=== PATIENT | female | born 1990 | race Two or more races ===

== ENCOUNTER 2021-05-26 20:20 | Emergency (ER) | payer SELFPAY ==
[~2021-05-26] VITALS: Ht 157.5 cm; Wt 80.6 kg
[2021-05-26 21:49] LABS: U PREG PATIENT POSITIVE (NEG)
[2021-05-26 23:05] VITALS: BP 134/69
[2021-05-26 23:09] LABS: BILIRUBIN,URINE NEGATIVE (NEG); CLARITY,URINE TURBID; COLOR,URINE YELLOW; NITRITE,URINE NEGATIVE (NEG); PROTEIN,URINE NEGATIVE (NEG-TRACE)
[2021-05-26 23:19] LABS: AMORPHOUS SEDIMENT,UR PRESENT /HPF; BACTERIA,URINE FEW /HPF (0-FEW); RBC,URINE 0 /HPF (0-2); WBC,URINE OCC /HPF (0-4)
--- NOTE | 2021-05-26 23:19 | PHYS DOC ---
Past Medical History Additional Past Medical Histor: Past Surgical History: No Surgical History General Adult EDM: Chief Complaint: ABDOMINAL PAIN IN HPI: HPI: 31 yo (LMP 03/2021) presents to the ed with c/o lower abdominal pain and low back pain that started just prior to arrival while patient was lifting a heavy object at work. Patient denies any prior injury to her abdomen. No associated vaginal bleeding, leakage or abnormal discharge. She took a home test this past month that was positive. Reports she is concerned for her baby. Does report morning sickness with this -vomited after eating earlier today. 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 Review of Systems: Review of Systems: Constitutional: Denies fever or chills. [] Eyes: Denies change in visual acuity. [] HENT: Denies nasal congestion or sore throat. [] Respiratory: Denies cough or shortness of breath. [] Cardiovascular: Denies chest pain or edema. [] GI: Denies bloody stools or diarrhea. [] : Denies dysuria or hematuria Musculoskeletal: Denies flank pain or joint pain. [] Integument: Denies rash or diaphoresis Neurologic: Denies headache, focal weakness or sensory changes. [] Endocrine: Denies polyuria or polydipsia. [] Lymphatic: Denies swollen glands. [] Psychiatric: Denies depression or anxiety. [] Heart Score: C/O Chest Pain: No Risk Factors: Risk Factors: DM, Current or recent (<one month) smoker, HTN, HLP, family history of CAD, obesity. Risk Scores: Score 0 - 3: 2.5% MACE over next 6 weeks - Discharge Home Score 4 - 6: 20.3% MACE over next 6 weeks - Admit for Clinical Observation Score 7 - 10: 72.7% MACE over next 6 weeks - Early Invasive Strategies Allergies: Allergies: Allergies Coded Allergies Type Severity Reaction Last Updated Verified codeine Allergy Unknown Rash 05/26/21 Yes Physical Exam: PE: Constitutional: Well developed, well nourished, no acute distress, non-toxic appearance. HENT: Normocephalic, atraumatic, Eyes: EOMI, conjunctiva normal, no discharge. Neck: Normal range of motion, supple, Cardiovascular: S1/2 present, regular rhythm Lungs & Thorax: Speaking in full sentences, bilateral equal chest rise, no tachypnea or increased work of breathing Abdomen: soft, no tenderness, tenderness in suprapubic region Skin: Warm, dry, no erythema, no rash. [] Back: Reports L5 midline back pain with no significant crepitus or pain with palpation, no midline step-offs, no CVA tenderness. [] Extremities: No tenderness, no cyanosis, no lower extremity edema Neurologic: Alert and oriented X 3, normal motor function, normal sensory function, no focal deficits noted. [] Psychologic: Affect normal, judgement normal, mood normal. [] Bedside pocus performed on arrival w/IUP, stational sac, yolk sac and pole visualized with reactively visualized Current Patient Data: Labs: Laboratory Tests Test 05/26/21 21:30 Urine Test Positive (NEG) Vital Signs: Vital Signs Date Time Temp Pulse Resp B/P (MAP) Pulse Ox O2 Delivery O2 Flow Rate FiO2 05/26/21 20:25 98.7 97 18 119/55 (76) 100 Room Air 98.7 EKG: EKG: [] Radiology/Procedures: Radiology/Procedures: IMAGING REPORT Signed PATIENT: ELVIS MAYER MACCOUNT: [id number] : 1990 LOCATION: ER AGE: 31 SEX: F EXAM STATUS: REG ER ORD. PHYSICIAN: KYLE RENTERIA DO REASON: abd pain in PROCEDURE: OB TRANSVAG US OB TRANSVAGINAL: 05/26/2021 10:56 PM INDICATION: 31 years old Female. Abdominal pain in . COMPARISON: None. TECHNIQUE: Transabdominal and transvaginal sonographic evaluation of the pelvis was performed. Grayscale, color Doppler and spectral waveform analysis were utilized. FINDINGS: UTERUS: There is a single circumscribed, normal gestational sac with yolk sac and pole. heart tones measure 141 bpm. [place]-rump length measures 0.9 cm compatible gestational age of 7 weeks 0 days. Size: 9.3 x 6.4 x 5.2 cm. Masses: None. Endometrium: No suspicious vascularity is identified. RIGHT OVARY: 2.4 x 2.1 x 1.8 cm. Ovary is normal in appearance. LEFT OVARY: 1.8 x 1.6 x 1.5 cm. Ovary is normal in appearance. Arterial and venous waveform are identified within the ovaries bilaterally at the time of imaging. FREE FLUID: None. URINARY BLADDER: Unremarkable. IMPRESSION: Single viable intrauterine gestation visualized with heart tones measuring 141 bpm and crown-rump length compatible gestational age of 7 weeks 0 days. There is persistent clinical concern, short-term follow-up pelvic ultrasound and beta-hCG could be of benefit. Perfusion is noted to the ovaries bilaterally at the time of imaging. Electronically signed by: China Benavidez MD (05/26/2021 11:45 PM) [facility] DICTATED and SIGNED BY: CHINA BENAVIDEZ MD DATE: 05/26/21 [id number] 0 Course & Med Decision Making: Course & Med Decision Making Pertinent Labs and Imaging studies reviewed. (See chart for details) Concern for mild abdominal pelvic pain will lifting at work. On reevaluation patient states she feels well and her pain has resolved. Has no active nausea vomiting emergency department. Basic labs are unremarkable with nonspecific leukocytosis. Ultrasound shows normal intrauterine . Patient with no vaginal bleeding. Is O+ and not a candidate for RhoGam. Urinalysis is a contaminated sample with no nitrates or leukocyte esterase. Patient is calm, well-appearing with symptom resolution and reevaluation. Will discharge home with strict ED return precautions were given for blunt abdominal injury, severe abdominal or back pain or vaginal bleeding. Encouraged urgent outpatient follow- up with PMD for routine care and SPECIALTY PERSON for definitive management for shortness of . Life-threatening processes were considered but are low suspicion at this time, given history, physical exam and ED workup. Pt was educated on all prescription medications and adverse effects. All patient's questions were answered and pt was stable at time of discharge. Life/limb-threatening differential includes but is not limited to, ectopic , septic , sepsis/infection (endometritis, sti/pid, cystitis, pyelonephritis, Dejuan's gangrene or necrotizing fasciitis, abscess), ovarian torsion, ruptured hemorrhagic ovarian cyst, endometriosis, ureterolithiasis, thrombophlebitis, hemorrhage/DIC, organ prolapse, abdominal aortic aneurysm, mesenteric ischemia, neoplasm, bowel obstruction or surgical abdomen. I have spoken with the patient and/or caregivers. I explained the patient's condition, diagnoses and treatment plan based on the information available to me at this time. I have answered the patient and/or caregiver's questions and addressed any concerns. The patient and/or caregivers have a good understanding of patient's diagnosis, condition and treatment plan as can be expected at this point. Vital signs have been stable. Patient's condition is stable and appropriate for discharge from the emergency department. Patient will pursue further outpatient evaluation with primary care physician or other designated or consulting physician as outlined in the discharge instructions. The patient and/or caregivers are agreeable to this plan of care and follow-up instructions have been explained in detail. The patient and/or caregivers have received these instructions in written form and have expressed an understanding of the discharge instructions. The patient and/or caregivers are aware that any significant change of condition or worsening of symptoms should prompt immediate return to this or the closest emergency department or call to 911. Jason Disclaimer: Dragon Disclaimer: This electronic medical record was generated, in whole or in part, using a voice recognition dictation system. Departure Departure Impression: Primary Impression: Abdominal pain during in first trimester Disposition: 01 HOME / SELF CARE / HOMELESS Condition: STABLE Referrals: NO PCP (PCP) Seguimiento con starkey mdico de atencin primaria para atencin de rutina O SEGUIMIENTO CON MEDICINA FAMILIAR: [id number] [facility], [facility] [address] [place] [address] Telfono: Patient Instructions: Abdominal Pain During Additional Instructions: SEGUIMIENTO CON SPECIALTY PERSON: PARA EL MANEJO DEFINITIVO del embarazo en el primer count includes the [facility] [address] [facility], [facility] [address] [place] [address] Telfono: INSTRUCCIONES GENERALES DE REGGIE DEL DEPARTAMENTO DE EMERGENCIA Jony por venir al Departamento de Emergencias (ED) de [facility] cory y confiando en nosotros con starkey cuidado. Confiamos en que tuviste jackie experiencia positiva en nuestra Emergencia Departamento. Si desea hablar con la gerencia del departamento, puede llamar al Director al [phone]. KHRIS INSTRUCCIONES DE SEGUIMIENTO SON LAS SIGUIENTES: 1. Tiene un mdico privado? Si no tiene un mdico privado, por favor pida vivien lista de recursos de mdicos o clnicas que pueden ayudarlo con la atencin de seguimiento. 2. El Mdico de Urgencias arnold interpretado khris radiografas. El especialista en jeffrey X tambin revisarlos. Si hay un cambio en los hallazgos, se le notificar en 48 horas cuando al todo posible. 3. Se arnold realizado jackie prueba de laboratorio o cultivo, se revisarn khris resultados y se le notificado si necesita un cambio en el tratamiento. INSTRUCCIONES E INFORMACIN ADICIONALES: 1. Starkey atencin hoy arnold sido supervisada por un mdico especialmente capacitado en emergencias cuidado. Muchos problemas requieren ms de jackie evaluacin para un diagnstico completo y tratamiento. Le recomendamos que programe starkey elizabeth de seguimiento segn lo recomendado para garantizar el tratamiento completo de starkey enfermedad o lesin. Si no puede obtener un seguimiento atencin y contina teniendo un problema, o si starkey condicin empeora, le rec omendamos que volver al servicio de urgencias. 2. No podemos determinar starkey condicin de forma vargas por telfono ni podemos rachel buenos consejos mdicos por telfono. Por estas razones de seguridad, si llama para recibir atencin mdica consejo, le pediremos que venga al servicio de urgencias para jackie evaluacin adicional. 3. Si tiene alguna pregunta con respecto a estas instrucciones de reggie, llame al ED al [phone]. INFORMACIN DE SEGURIDAD: En inters de la seguridad, el bienestar y la prevencin de lesiones; te animamos a que lleves tu cinturn de seguridad, si fuma; fumando bastante, y alentamos a la braeden a usar un pierre protector para andar en bicicleta y otros eventos deportivos que presentan un mayor riesgo de lesiones en la oanh. SI KHRIS SNTOMAS EMPEORAN O SE DESARROLLAN NUEVOS SNTOMAS, O SI TIENE PREOCUPACIONES SOBRE STARKEY CONDICIN; O SI STARKEY CONDICIN EMPEORA MIENTRAS ESPERA STARKEY ELIZABETH DE SEGUIMIENTO; CUALQUIERA COMUNQUESE CON STARKEY MDICO DE ATENCIN PRIMARIA, EL MDICO CUYO NOMBRE Y NMERO LE DIERON, O REGRESE AL ED INMEDIATAMENTE. Scripts Vit No.78/Iron/Fa (PRENATABS FA TABLET) 1 Each Tablet 1 TAB PO DAILY for 30 Days, #30 TAB 0 Refills Prov: KYLE RENTERIA DO 05/27/21 KYLE RENTERIA DO May 26, 2021 23:19
[2021-05-26 23:23] LABS: BASO % 0 % (0-3); EOS # 0.1 x10^3/uL (0.0-0.7); EOS % 1 % (0-3); HEMATOCRIT 38.5 % (36.0-47.0); LYMPH # 4.2 x10^3/uL (1.0-4.8); LYMPH % 34 % (24-48); MEAN CORPUSCULAR HEMOGLOBIN 31 pg (25-35); MEAN CORPUSCULAR HGB CONC 34 g/dL (31-37); MEAN CORPUSCULAR VOLUME 91 fL (79-100); MONO # 1.1 x10^3/uL (0.0-1.1); MONO % 9 % (0-9); NEUT # 7.1 x10^3/uL (1.8-7.7); NEUT % 57 % (31-73); PLATELET COUNT 260 x10^3/uL (140-400); RED BLOOD COUNT 4.22 x10^6/uL (3.50-5.40); RED CELL DISTRIBUTION WIDTH 13.2 % (11.5-14.5); WHITE BLOOD COUNT 12.4 x10^3/uL (4.0-11.0)
[2021-05-26 23:34] LABS: CALCIUM 8.5 mg/dL (8.5-10.1); CREATININE 0.6 mg/dL (0.6-1.0); GFR 117.4; POTASSIUM 3.5 mmol/L (3.5-5.1)
[2021-05-26 23:39] LABS: ALBUMIN 3.8 g/dL (3.4-5.0); ALBUMIN/GLOBULIN RATIO 0.9 (1.0-1.7); TOTAL PROTEIN 7.9 g/dL (6.4-8.2)
--- NOTE | 2021-05-26 23:48 | RAD ---
US OB TRANSVAGINAL: 05/26/2021 10:56 PM INDICATION: 31 years old Female. Abdominal pain in . COMPARISON: None. TECHNIQUE: Transabdominal and transvaginal sonographic evaluation of the pelvis was performed. Nat urmila, color Doppler and spectral waveform analysis were utilized. FINDINGS: UTERUS: There is a single circumscribed, normal gestational sac with yolk sac and pole. h eart tones measure 141 bpm. [place]-rump length measures 0.9 cm compatible gestational age of 7 weeks 0 days. Size: 9.3 x 6.4 x 5.2 cm. Masses: None. Endometrium: No suspicious vascularity is identified. RIGHT OVARY: 2.4 x 2.1 x 1.8 cm. Ovary is normal in appearance. LEFT OVARY: 1.8 x 1.6 x 1.5 cm. Ovary is normal in appearance. Arterial and venous waveform are identified within the ovaries bilaterally at the time of imaging. FREE FLUID: None. URINARY BLADDER: Unremarkable. IMPRESSION: Single viable intrauterine gestation visualized with heart tones measuring 141 bpm and crown-ru mp length compatible gestational age of 7 weeks 0 days. There is persistent clinical concern, short-t erm follow-up pelvic ultrasound and beta-hCG could be of benefit. Perfusion is noted to the ovaries bilaterally at the time of imaging. Electronically signed by: Yoly Giraldo MD (05/26/2021 11:45 PM) CHERELLE
[2021-05-27] MEDS ORDERED: PREN1TAB99 PO (01:40)
== END 2021-05-27 01:50 | disposition home or self-care (01) ==
LOC: ER 20:20
DX: O26.891 Other specified pregnancy related conditions, first trimester (principal); R10.30 Lower abdominal pain, unspecified; M54.59 Other low back pain; Z3A.01 Less than 8 weeks gestation of pregnancy; Z88.5 Allergy status to narcotic agent
CPT/HCPCS: 36415; 76817; 80053; 81001; 81025; 84702; 85025; 86900; 86901; 99284

== ENCOUNTER 2021-07-29 12:43 | Emergency (ER) | payer SELFPAY ==
[~2021-07-29] VITALS: Ht 160 cm; Wt 80.0 kg
[~2021-07-29 12:43] MED LIST: PREN1TAB99 PO
[2021-07-29] MEDS ORDERED: IV RINGERS,LACTATED 1000ML 1,000 ML IV SCH (13:15)
--- NOTE | 2021-07-29 13:34 | RAD ---
INDICATION: Reason: CP, SOB, lightheaded / Spl. Instructions: / History: COMPARISON: None. FINDINGS: Single view of chest obtained. Cardiac silhouette is unremarkable. Mild interstitial prominence bilaterally most prominent at the lung bases. No gross osseous destructive lesion IMPRESSION: * Mild interstitial opacities most prominent at lung bases. Possible causes would include mild pulmo nary vascular congestion or mild interstitial infiltrate. Electronically signed by: Jairo Patel MD (07/29/2021 1:31 PM) [id number]
[2021-07-29 14:34] LABS: BACTERIA,URINE FEW /HPF (0-FEW); RBC,URINE 0 /HPF (0-2); WBC,URINE OCC /HPF (0-4)
[2021-07-29 14:42] LABS: BASO % 0 % (0-3); EOS # 0.1 x10^3/uL (0.0-0.7); EOS % 1 % (0-3); HEMATOCRIT 34.1 % (36.0-47.0); HEMOGLOBIN 12.1 g/dL (12.0-15.5); LYMPH # 2.5 x10^3/uL (1.0-4.8); LYMPH % 21 % (24-48); MEAN CORPUSCULAR HEMOGLOBIN 32 pg (25-35); MEAN CORPUSCULAR HGB CONC 36 g/dL (31-37); MEAN CORPUSCULAR VOLUME 90 fL (79-100); MONO # 0.9 x10^3/uL (0.0-1.1); MONO % 8 % (0-9); NEUT # 8.3 x10^3/uL (1.8-7.7); NEUT % 70 % (31-73); PLATELET COUNT 227 x10^3/uL (140-400); RED BLOOD COUNT 3.78 x10^6/uL (3.50-5.40); RED CELL DISTRIBUTION WIDTH 13.1 % (11.5-14.5); WHITE BLOOD COUNT 11.9 x10^3/uL (4.0-11.0)
[2021-07-29 15:08] LABS: CALCIUM 8.6 mg/dL (8.5-10.1); CREATININE 0.6 mg/dL (0.6-1.0); GFR 117.4; POTASSIUM 3.2 mmol/L (3.5-5.1)
--- NOTE | 2021-07-29 15:11 | PHYS DOC ---
Past Medical History Past Medical History: No Pertinent History (TERRELL MASON) Past Surgical History: No Surgical History (TERRELL MASON) Smoking Status: Current Every Day Smoker Alcohol Use: None Drug Use: None (TERRELL MASON) General Adult EDM: Chief Complaint: CHEST PAIN HPI: HPI: Patient is a 31 year old A0 female who presents with chest pain, lightheadedness and shortness of breath that began about 3 hours prior to arrival. Patient reports that she was at work when her symptoms began all at once and suddenly. She states that she attempted to sit down, breathe slowly and close her eyes, but her chest pain did not resolve. Patient reports she had similar symptoms about 1 year ago when her mother . Patient denies weakness, diaphoresis, nausea vomiting, palpitations, cough. Patient's last known menstrual period began on 03/14/2022, which places her at approximately 19 weeks 4 days gestational age. She has no abdominal pain, abdominal cramping, vaginal cramping, vaginal bleeding, increased vaginal discharge or any other complaints related to her . (TERRELL MASON) Review of Systems: Review of Systems: Constitutional: Denies fever, chills or generalized weakness Eyes: Denies change in visual acuity, visual field deficits or discharge HENT: Denies ear pain, nasal congestion or sore throat Respiratory: See HPI Cardiovascular: See HPI GI: Denies abdominal pain, nausea, vomiting, bloody stools or diarrhea : Denies dysuria or hematuria Musculoskeletal: Denies back pain or joint pain Integument: Denies rash or other skin lesion Neurologic: See HPI (TERRELL MASON) Heart Score: C/O Chest Pain: Yes HEART Score for Chest Pain: HEART Score for Chest Pain Response (Comments) Value History Slighlty/Non-Suspicious 0 ECG Normal 0 Age < 45 0 Risk Factors No Risk Factors 0 Troponin < Normal Limit 0 Total 0 Risk Factors: Risk Factors: none Risk Scores: Score 0 - 3: 2.5% MACE over next 6 weeks - Discharge Home Score 4 - 6: 20.3% MACE over next 6 weeks - Admit for Clinical Observation Score 7 - 10: 72.7% MACE over next 6 weeks - Early Invasive Strategies (TERRELL MASON) Current Medications: Current Medications Medications (Trade) Dose Ordered Sig/Rosemarie Start Time Stop Time Status Last Admin Dose Admin Ringer's Solution 1,000 ml @ 1,000 mls/hr Q1H 07/29/21 13:15 07/29/21 14:14 DC 07/29/21 13:15 1,000 MLS/HR (TERRELL MASON) Allergies: Allergies: Allergies Coded Allergies Type Severity Reaction Last Updated Verified codeine Allergy Intermediate Rash 07/29/21 Yes (TERRELL MASON) Physical Exam: PE: Constitutional: Well developed, well nourished, non-toxic appearance, patient appears anxious. HENT: Normocephalic, atraumatic, bilateral external ears normal, oropharynx moist, no oral exudates, nose normal. Eyes: PERRL, EOMI, conjunctiva normal, no discharge. Neck: Normal range of motion, no stridor. Cardiovascular: Heart regular rate and rhythm. No apparent murmurs, rubs or gallops. Lungs & Thorax: Equal thoracic expansion, no increased work of breathing, lung dunlap clear to auscultation. Skin: Warm, dry, no erythema, no rash. Neurologic: Alert and oriented x4, normal motor function, normal sensory function, no focal deficits noted. (TERRELL MASON) Current Patient Data: Labs: Laboratory Tests Test 07/29/21 13:14 07/29/21 14:30 07/29/21 17:40 Urine Collection Type Unknown Urine Color (Auto) Colorless Urine Turbidity Clear Urine pH (Auto) 7.0 (<5.0-8.0) Urine Specific [place] 1.003 (1.000-1.030) Urine Protein (Auto) Negative mg/dL (Negative) Urine Glucose (Auto)(UA) Negative mg/dL (Negative) Urine Ketones (Auto) Negative mg/dL (Negative) Urine Blood (Auto) Negative (Negative) Urine Nitrite Negative (Negative) Urine Bilirubin (Auto) Negative (Negative) Urine Urobilinogen (Auto) Normal mg/dL (Normal) Urine Leukocyte Esterase (Auto) Negative (Negative) Urine RBC 0 /HPF (0-2) Urine WBC Occ /HPF (0-4) Urine Squamous Epithelial Cells Few /LPF Urine Bacteria Few /HPF (0-FEW) White Blood Count 11.9 x10^3/uL (4.0-11.0) Red Blood Count 3.78 x10^6/uL (3.50-5.40) Hemoglobin 12.1 g/dL (12.0-15.5) Hematocrit 34.1 % (36.0-47.0) Mean Corpuscular Volume 90 fL (79-100) Mean Corpuscular Hemoglobin 32 pg (25-35) Mean Corpuscular Hemoglobin Concent 36 g/dL (31-37) Red Cell Distribution Width 13.1 % (11.5-14.5) Platelet Count 227 x10^3/uL (140-400) Neutrophils (%) (Auto) 70 % (31-73) Lymphocytes (%) (Auto) 21 % (24-48) Monocytes (%) (Auto) 8 % (0-9) Eosinophils (%) (Auto) 1 % (0-3) Basophils (%) (Auto) 0 % (0-3) Neutrophils # (Auto) 8.3 x10^3/uL (1.8-7.7) Lymphocytes # (Auto) 2.5 x10^3/uL (1.0-4.8) Monocytes # (Auto) 0.9 x10^3/uL (0.0-1.1) Eosinophils # (Auto) 0.1 x10^3/uL (0.0-0.7) Basophils # (Auto) 0.0 x10^3/uL (0.0-0.2) Maternal Serum HCG Beta Subunit 12972 mIU/mL (0-5) Sodium Level 137 mmol/L (136-145) Potassium Level 3.2 mmol/L (3.5-5.1) Chloride Level 103 mmol/L (98-107) Carbon Dioxide Level 25 mmol/L (21-32) Anion Gap 9 (6-14) Blood Urea Nitrogen 5 mg/dL (7-20) Creatinine 0.6 mg/dL (0.6-1.0) Estimated GFR (Cockcroft-Gault) 117.4 BUN/Creatinine Ratio 8 (6-20) Glucose Level 133 mg/dL (70-99) Calcium Level 8.6 mg/dL (8.5-10.1) Magnesium Level 2.0 mg/dL (1.8-2.4) Total Bilirubin 0.4 mg/dL (0.2-1.0) Aspartate Amino Transf (AST/SGOT) 17 U/L (15-37) Alanine Aminotransferase (ALT/SGPT) 24 U/L (14-59) Alkaline Phosphatase 64 U/L (46-116) Troponin I High Sensitivity 5 ng/L (4-50) 5 ng/L (4-50) Total Protein 7.1 g/dL (6.4-8.2) Albumin 3.0 g/dL (3.4-5.0) Albumin/Globulin Ratio 0.7 (1.0-1.7) Laboratory Tests 07/29/21 14:30 Vital Signs: Vital Signs Date Time Temp Pulse Resp B/P (MAP) Pulse Ox O2 Delivery O2 Flow Rate FiO2 07/29/21 18:53 70 16 135/76 (95) 100 Room Air 07/29/21 16:01 70 16 127/55 (79) 97 Room Air 07/29/21 12:50 98.6 97 16 119/73 (88) 100 Room Air 98.6 heart tones measured in the 150s. (TERRELL MASON) EKG: EKG: EKG Interpreted by Dr. Haney at 1320: Regular rate and rhythm 91 bpm with no ectopic beats. QT 362 ms/QTc 447 ms. No STEMI. EKG Interpreted by Dr. Haney at 1428: Regular rate and rhythm 89 bpm with no ectopic beats. QT 376 ms/QTc 459 ms. No STEMI. (TERRELL MASON) Radiology/Procedures: Radiology/Procedures: PROCEDURE: PORTABLE CHEST 1V INDICATION: Reason: CP, SOB, lightheaded / Spl. Instructions: / History: COMPARISON: None. FINDINGS: Single view of chest obtained. Cardiac silhouette is unremarkable. Mild interstitial prominence bilaterally most prominent at the lung bases. No gross osseous destructive lesion IMPRESSION: * Mild interstitial opacities most prominent at lung bases. Possible causes would include mild pulmonary vascular congestion or mild interstitial infiltrate. Electronically signed by: Jairo Patel MD (07/29/2021 1:31 PM) [id number] (TERRELL MASON) Course & Med Decision Making: Course & Med Decision Making Pertinent Labs and Imaging studies reviewed. (See chart for details) Patient is a 31-year-old female at approximately 19 weeks 4 days gestat ion who presents with chest pain and associated shortness of breath and lightheadedness. Work-up today will include serial EKGs, serial troponin, labs. D-dimer testing in discussed with patient, and she declines this lab draw today. Patient states that her symptoms today are all very similar to the acute grief reaction she experienced when her mother . This was almost 1 year ago, and so she is approaching the date that her mother . Work-up today is reassuring. Patient is instructed to follow-up with OB. Strict return precautions were provided. Patient understands and is agreeable to discharge plan. Patient is slovak speaking. Interview and exam were conducted in slovak with good understanding and fluid communication. (TERRELL MASON) Dragon Disclaimer: Dragon Disclaimer: This electronic medical record was generated, in whole or in part, using a voice recognition dictation system. (TERRELL MASON) Departure Departure Impression: Primary Impression: Atypical chest pain Additional Impression: Reaction, situational, acute, to stress Disposition: 01 HOME / SELF CARE / HOMELESS Condition: STABLE Referrals: NO PCP (PCP) Patient Instructions: Grief Reaction, Potassium Content of Foods Additional Instructions: INSTRUCCIONES GENERALES DE REGGIE DEL DEPARTAMENTO DE EMERGENCIA Jony por venir cory al Departamento de Emergencias (ED) de y confiarnos starkey atencin. Confiamos en que haya tenido jackie experiencia positiva en nuestro Departamento de Emergencias. Si desea hablar con la gerencia del departamento, puede llamar al director al . KHRIS INSTRUCCIONES DE SEGUIMIENTO SON LAS SIGUIENTES: 1. Tammi un seguimiento con starkey mdico de atencin primaria. Si no tiene un mdico de cabecera, solicite jackie lista de recursos de mdicos o clnicas que puedan ayudarlo con la atencin de seguimiento. 2. El proveedor de emergencia arnold interpretado khris estudios de imgenes, si se ordenaron. El especialista en imgenes de radiologa tambin los brendon. Si hay un cambio en los hallazgos, se le notificar en 48 horas cuando sea posible. 3. Si se arnold realizado jackie prueba de laboratorio o un cultivo, se revisarn khris resultados y se le notificar si necesita un cambio en el tratamiento. 4. Siga las instrucciones verbalizadas y consulte las copias impresas si es necesario. INSTRUCCIONES E INFORMACIN ADICIONALES: 1. Starkey atencin hoy arnold sido supervisada por un mdico especialmente capacitado en atencin de emergencia. Muchos problemas requieren ms de jackie evaluacin para un diagnstico y tratamiento completos. Le recomendamos que programe starkey elizabeth de seguimiento segn lo recomendado para garantizar el tratamiento completo de starkey enfermedad o lesin. Si no puede obtener atencin de seguimiento y contina teniendo un problema, o si starkey condicin empeora, le recomendamos que regrese al servicio de urgencias. 2. No podemos determinar de manera vargas starkey condicin por telfono ni podemos rachel consejos mdicos slidos por telfono. Por estas razones de seguridad, si llama para pedir consejo mdico, le pediremos que vaya al servicio de urgencias para jackie evaluacin adicional. 3. Si tiene alguna pregunta sobre estas instrucciones de reggie, llame al ED al . INFORMACIN DE SEGURIDAD: En inters de la seguridad, el bienestar y la prevencin de lesiones; le recomendamos que use starkey cinturn de seguridad, si fuma; bastante fumador, y a lentamos a la braeden a usar un pierre protector para andar en bicicleta y otros eventos deportivos que presenten un mayor riesgo de lesiones en la oanh. SI KHRIS SNTOMAS EMPEORAN O SE DESARROLLAN NUEVOS SNTOMAS, O SI TIENE PREOCUPACIONES SOBRE STARKEY CONDICIN; O SI STARKEY CONDICIN EMPEORA MIENTRAS ESPERA STARKEY ELIZABETH DE SEGUIMIENTO; PNGASE EN CONTACTO CON STARKEY MDICO DE ATENCIN PRIMARIA, EL MDICO CUYO NOMBRE Y NMERO LE DIERON, O REGRESE AL ED INMEDIATAMENTE. Attending Signature I have participated in the care of this patient and I have reviewed and agree with all pertinent clinical information above including history, exam, and recommendations. (EDISON HANEY DO) TERRELL MASON Jul 29, 2021 15:11 EDISON HANEY DO Jul 31, 2021 14:00
[2021-07-29 15:14] LABS: ALBUMIN/GLOBULIN RATIO 0.7 (1.0-1.7); TOTAL BILIRUBIN 0.4 mg/dL (0.2-1.0); TOTAL PROTEIN 7.1 g/dL (6.4-8.2)
[2021-07-29 18:53] VITALS: BP 135/76
[2021-07-29] MEDS ORDERED: MORPHINE SULFATE 2 MG/ML INJ. IVP ONE (19:00)
--- NOTE | 2021-07-29 19:05 | NUR ---
ERR called for RN to doppler fht's. RN enter ER room 5 and listened to fht's with doppler. FHt's were in the 150's. Pt denies cramping or contractions. Pt uterus palpated soft and relaxed.
--- NOTE | 2021-07-30 11:41 | EKG ---
[facility] [address] [place] [address] Test Date: 2021-07-29 Test Time: 00:00:00 Pat Name: ELVIS MAYER Department: Room: Gender: F [employer] Account Assistant: : 1990 Requested By: TERRELL MASON Order Number: [id number] Reading MD: Landon Price Measurements Intervals [place] Rate: 91 P: 46 WA: 148 QRS: 53 QRSD: 80 T: 19 QT: 362 QTc: 447 Interpretive Statements SINUS RHYTHM PROLONGED QT Electronically Signed On 07-30-2021 16:45:51 CDT by Landon Price
--- NOTE | 2021-07-30 11:43 | EKG ---
[facility] [address] [place] [address] Test Date: 2021-07-29 Test Time: 00:00:00 Pat Name: ELVIS MAYER Department: Room: Gender: F [place] Attorney: : 1990 Requested By: TERRELL MASON Order Number: [id number] Reading MD: Landon Price Measurements Intervals [place] Rate: 89 P: 41 SC: 148 QRS: 56 QRSD: 80 T: 30 QT: 376 QTc: 459 Interpretive Statements SINUS RHYTHM INCOMPLETE RIGHT BUNDLE BRANCH BLOCK PROLONGED QT Electronically Signed On 07-30-2021 16:46:32 CDT by Landon Price
== END 2021-07-29 19:24 | disposition home or self-care (01) ==
LOC: ER 12:43
DX: R07.89 Other chest pain (principal); R06.02 Shortness of breath; R42 Dizziness and giddiness; F17.200 Nicotine dependence, unspecified, uncomplicated; Z88.5 Allergy status to narcotic agent
CPT/HCPCS: 36415; 71045; 80053; 81001; 83735; 84484; 84702; 85025; 93005; 96360; 99285; J7120